=== PATIENT | female | born 1970 | race Caucasian/White ===

== ENCOUNTER → 2017-09-09 | Outpatient (CLI) | payer OTHER | END | disposition home or self-care (01) | LOC: MAMMO 03:04 | DX: N63.10 Unspecified lump in the right breast, unspecified quadrant (principal) ==

== ENCOUNTER → 2018-09-16 | Outpatient (CLI) | payer OTHER | END | disposition home or self-care (01) | LOC: MAMMO 09-15 09:00 | DX: N63.10 Unspecified lump in the right breast, unspecified quadrant (principal) ==

== ENCOUNTER → 2019-07-11 | Outpatient (CLI) | payer OTHER | END | disposition home or self-care (01) | LOC: LAB 08:51 | DX: N91.2 Amenorrhea, unspecified (principal) ==

== ENCOUNTER → 2020-01-25 | Outpatient (CLI) | payer OTHER | END | disposition home or self-care (01) | LOC: MAMMO 01-19 09:00 | DX: N63.0 Unspecified lump in unspecified breast (principal); R73.03 Prediabetes ==

== ENCOUNTER → 2020-06-28 | Outpatient (CLI) | payer OTHER | END | disposition home or self-care (01) | LOC: COVID19 03:02 | PROVIDERS: ATTEND Internal Medicine Critical Care Medicine | DX: Z20.828 Contact with and (suspected) exposure to other viral communicable diseases (principal) ==

== ENCOUNTER → 2020-12-13 | Outpatient (CLI) | payer OTHER | END | disposition home or self-care (01) | LOC: US 01:58 | PROVIDERS: ATTEND Obstetrics & Gynecology Gynecology | DX: D25.2 Subserosal leiomyoma of uterus (principal) ==

== ENCOUNTER → 2021-08-22 | Outpatient (CLI) | payer OTHER | END | disposition home or self-care (01) | LOC: US 08-16 09:30 | PROVIDERS: ATTEND Internal Medicine Critical Care Medicine | DX: D25.9 Leiomyoma of uterus, unspecified (principal) ==

== ENCOUNTER → 2022-09-03 | Outpatient (CLI) | payer OTHER | END | disposition home or self-care (01) | LOC: MAMMO 08-07 09:00 | PROVIDERS: ATTEND Internal Medicine Critical Care Medicine | DX: D25.1 Intramural leiomyoma of uterus (principal); R92.2 Inconclusive mammogram; R92.8 Other abnormal and inconclusive findings on diagnostic imaging of breast; N92.1 Excessive and frequent menstruation with irregular cycle ==

== ENCOUNTER → 2023-09-07 | Outpatient (CLI) | payer OTHER | END | disposition home or self-care (01) | LOC: MAMMO 08:47 | PROVIDERS: ATTEND Internal Medicine Critical Care Medicine | DX: Z12.31 Encounter for screening mammogram for malignant neoplasm of breast (principal) ==

== ENCOUNTER → 2024-03-11 | Outpatient (CLI) | payer OTHER | END | disposition home or self-care (01) | LOC: MRI 01:54 | PROVIDERS: ATTEND Internal Medicine Critical Care Medicine | DX: R42 Dizziness and giddiness (principal) ==

== ENCOUNTER → 2024-09-08 | Outpatient (CLI) | payer OTHER | END | disposition home or self-care (01) | LOC: MAMMO 10:17 | PROVIDERS: ATTEND Internal Medicine Critical Care Medicine | DX: Z12.31 Encounter for screening mammogram for malignant neoplasm of breast (principal) ==

== ENCOUNTER → 2024-10-31 | Outpatient (CLI) | payer OTHER | END | disposition home or self-care (01) | LOC: MRI 10:12 | PROVIDERS: ATTEND Podiatrist | DX: M19.072 Primary osteoarthritis, left ankle and foot (principal); M25.475 Effusion, left foot; M20.12 Hallux valgus (acquired), left foot ==

== ENCOUNTER 2025-06-05 21:02 | Emergency (ER) | payer OTHER ==
[2025-06-05] MEDS ORDERED: Tdap Vaccine 0.5 ML SYR (Adult Vaccine) IM ONE (21:15)
[2025-06-05] MEDS ORDERED: Amoxicillin/Clavulanate Pota 875 MG TAB PO ONE (21:15)
[2025-06-05] MEDS ORDERED: AMOX-CLAV 875-1 EACH PO (21:16)
[2025-06-05] MEDS ORDERED: ACETAMINOPHEN 325 MG TAB PO ONE (21:20)
== END 2025-06-05 21:18 | disposition home or self-care (01) ==
LOC: ED 21:02
DX: S81.851A Open bite, right lower leg, initial encounter (principal); W54.0XXA Bitten by dog, initial encounter; Y93.89 Activity, other specified; Y92.89 Other specified places as the place of occurrence of the external cause; Y99.8 Other external cause status

== ENCOUNTER → 2025-09-13 | Outpatient (CLI) | payer OTHER ==
[~2025-09-13] MED LIST: AMOX-CLAV 875-1 EACH PO
== END | disposition home or self-care (01) ==
LOC: MAMMO 09:30
PROVIDERS: ATTEND Internal Medicine Critical Care Medicine
DX: Z12.31 Encounter for screening mammogram for malignant neoplasm of breast (principal)